=== PATIENT | female | born 1935 | race Caucasian/White ===

== ENCOUNTER 2019-02-24 14:12 | Emergency (ER) | payer MEDICARE ==
[~2019-02-24] VITALS: Ht 170.1 cm; Wt 86.2 kg
== END 2019-02-24 15:41 | disposition home or self-care (01) ==
LOC: ED 14:12
DX: S63.502A Unspecified sprain of left wrist, initial encounter (principal); M06.9 Rheumatoid arthritis, unspecified; Z88.0 Allergy status to penicillin; W23.0XXA Caught, crushed, jammed, or pinched between moving objects, initial encounter; Y93.K1 Activity, walking an animal; Y92.89 Other specified places as the place of occurrence of the external cause; Y99.8 Other external cause status